=== PATIENT | female | born 1995 | race Caucasian/White ===

== ENCOUNTER 2021-06-26 00:06 | Emergency (ER) | payer MEDICAID ==
[~2021-06-26] VITALS: Ht 172.7 cm; Wt 72.7 kg
[2021-06-26] MEDS ORDERED: ketorolac tromethamine 15mg/ml inj. IM ONE (00:40)
[2021-06-26] MEDS ORDERED: dexamethasone 4mg tablet PO ONE (00:55)
[2021-06-26 01:43] LABS: BASOPHILS # (AUTO) 0.2 X10'3 (0-0.2); BASOPHILS % (AUTO) 0.7 % (0-1); EOSINOPHILS # (AUTO) 0.2 X10'3 (0-0.9); HEMATOCRIT 38.3 % (35.0-45.0); HEMOGLOBIN 13.2 g/dl (12.0-16.0); LYMPHOCYTES # (AUTO) 5.3 X10'3 (1.1-4.8); LYMPHOCYTES % (AUTO) 22.3 % (21-51); MEAN CORPUSCULAR HEMOGLOBIN 31.5 PG (27.0-31.0); MEAN CORPUSCULAR HGB CONC 34.5 g/dL (33.0-36.5); MEAN CORPUSCULAR VOLUME 91.2 FL (78-98); MEAN PLATELET VOLUME 8.8 FL (7.4-10.4); MONOCYTES # (AUTO) 1.7 X10'3 (0-0.9); MONOCYTES % (AUTO) 7.1 % (2-12); NEUTROPHILS # (AUTO) 16.5 X10'3 (1.8-7.7); NEUTROPHILS % (AUTO) 68.9 % (42-75); PLATELET COUNT 373 X10'3 (140-440); RED CELL DISTRIBUTION WIDTH 12.3 % (11.5-14.5); WHITE BLOOD COUNT 23.9 X10'3 (4.5-11.0)
[2021-06-26 01:57] LABS: ALANINE AMINOTRANSFERASE 20 U/L (12-78); ALBUMIN 3.6 G/DL (3.4-5.0); ALBUMIN/GLOBULIN RATIO 0.9 (1.1-1.5); ALKALINE PHOSPHATASE 93 IU/L (46-116); ANION GAP 8 (8-16); ASPARTATE AMINO TRANSFERASE 8 U/L (10-37); BILIRUBIN,TOTAL 0.3 MG/DL (0.1-1.0); BLOOD UREA NITROGEN 16 MG/DL (7-18); BUN/CREATININE RATIO 17.2 (6.6-38.0); C-REACTIVE PROTEIN 0.23 MG/DL (0.0-0.5); CALCIUM 8.8 MG/DL (8.5-10.1); CHLORIDE 104 MMOL/L (99-107); CREATININE 0.93 MG/DL (0.40-0.90); GLUCOSE 100 MG/DL (70-104); POTASSIUM 3.6 MMOL/L (3.5-5.1); SODIUM 141 MMOL/L (135-145); TOTAL CARBON DIOXIDE 29.2 MMOL/L (24-32); TOTAL PROTEIN 7.4 G/DL (6.4-8.2); eGFR 72 ML/MIN
--- NOTE | 2021-06-26 02:10 | NUR ---
PT STATES THAT HER BP RUNS "A LITTLE ON THE LOW SIDE" NORMALLY.
--- NOTE | 2021-06-26 02:40 | NUR ---
DR Martínez IS AWARE OF PT'S HIGH WBC. HE WILL PUT IN ORDERS FOR BLOOD CULTURES AND LACTIC.
[2021-06-26] MEDS ORDERED: PRED20TA PO (03:57)
[2021-06-26] MEDS ORDERED: HYDR-3972 PO (03:57)
[2021-06-26] MEDS ORDERED: ONDA4TAB12 PO (03:57)
[2021-06-26 04:47] VITALS: BP 125/80
== END 2021-06-26 04:51 | disposition home or self-care (01) ==
LOC: ER 00:08
DX: M25.531 Pain in right wrist (principal); M25.512 Pain in left shoulder; M79.651 Pain in right thigh
CPT/HCPCS: 29125; 36415; 80053; 83605; 84145; 85025; 85651; 86140; 87040; 96372; 99283; J1885